=== PATIENT | female | born 1960 ===

== ENCOUNTER → 2018-12-12 | Emergency (ER) | payer OTHER ==
[~2018-12-12] VITALS: Ht 160 cm; Wt 87.5 kg
[~2018-12-12] MED LIST: ALBUTEROL2.5 MG/3 M IH; BREO ELLIPTA 21 EACH IH; CUTIVATE30 GM PO; MELOXICAM15 MG PO; OMEPRAZOLE10 MG PO; PROMETH-CODEIN 65 ML PO; SINGULAIR10 MG PO; TESSALON PERLE100 M1 PO; VERAPAMIL ER120 MG PO; ZYRTEC10 M3 PO
== END | disposition home or self-care (01) ==
LOC: ER 11:59
DX: R05 Cough (principal)

== ENCOUNTER 2020-04-19 17:50 | Emergency (ER) | payer OTHER ==
[~2020-04-19] VITALS: Ht 160 cm; Wt 88.0 kg
== END 2020-04-20 00:10 | disposition home or self-care (01) ==
LOC: ER 17:50
DX: N39.0 Urinary tract infection, site not specified (principal)